=== PATIENT | male | born 1965 | race Caucasian/White ===

== ENCOUNTER 2023-11-06 17:49 | Emergency (ER) | payer BC, SELFPAY ==
[2023-11-06 18:02] VITALS: BP 141/90
--- NOTE | 2023-11-06 18:17 | ED.GENMED ---
History of Present Illness
General
Chief Complaint: Eye Problems
Time Seen by Provider: 11/06/23 18:15
History of Present Illness
History of Present Illness:
HPI: Patient presents with concerns of the left eye. Yesterday he was seen by his primary care doctor who placed him on clindamycin and an eye medication. He then went to see an cardiac rn who switched him to neomycin/polymyxin/dexamethasone.
He was encouraged to go to the ER if his symptoms worsened. He chronically has poor vision to the left eye.
EXAM:
GENERAL: Well appearing in no distress
HEENT: There is moderate to severe left-sided periorbital edema with overlying erythema, the patient was unable to read any of the lines for visual acuity with the left eye but states this is chronic
CARDIOVASCULAR: No murmurs, normal heart rate, regular rhythm, No chest wall tenderness
PULMONARY: No respiratory distress, breath sounds are clear and equal
ABDOMEN: Soft with no peritoneal signs, no tenderness
NEUROLOGIC: Excellent strength all extremities, no coordination deficits
PSYCHIATRIC: Appropriate mental status, normal insight and judgement
EXTREMITIES: Nontender, no edema, moves all extremities equally
SKIN: As above
TIME OF INITIAL ENCOUNTER: 6:30 PM
NUMBER AND COMPLEXITY OF PROBLEMS ADDRESSED AT THE ENCOUNTER
� Chronic conditions affecting care: [employer] shunt for hydrocephalus, COPD, PHILLIP, high blood pressure
� Acute Exacerbation and/or Progression of Chronic Illness: This is an acute problem
� Differential Diagnosis includes: Periorbital cellulitis, orbital cellulitis, facial cellulitis, abscess
AMOUNT AND/OR COMPLEXITY OF DATA TO BE REVIEWED AND ANALYZED
� I performed an independent evaluation of and my interpretation is:
EKG:
CT: CT imaging personally reviewed. No evidence for orbital cellulitis but there is suggestion of mild preorbital cellulitis
X-rays:
Laboratory Studies: White blood cell count is normal chemistries unremarkable
Other:
� Review of other/old records: I reviewed records. The patient was admitted here in March 2023 with COVID-pneumonia and was also placed on empiric antibiotics. He was given Decadron at that time and also has history of COPD.
� Clinical information was obtained by an independent historian: None needed
� Prescriptions/Medications Considered but not given:
� Further testing considered but not performed:
RISK OF COMPLICATIONS AND/OR MORBIDITY OR MORTALITY OF PATIENT MANAGEMENT
� Social determinants of health affecting care: Lives at home
� Discussion with other providers:
� Escalation of care including admission/observation vs risk of discharge considered: The patient states that his vision to the left eye is poor but this is unchanged from prior. He is at his baseline from a vision standpoint.
I did give a dose of IV antibiotics here and CT imaging of the orbits obtained. CT imaging shows no evidence of orbital cellulitis. His white count is normal and he is afebrile. He has been on antibiotics for less than 24 hours�encouraged to
continue antibiotics. To return here if worse.
Past History
Past History
ED Past Medical History: COPD, HTN and Other (Migraine headaches, BPH. Kidney stones, hydrocephalus right, PNA, Hiatal hernia)
ED Past Surgical History: Cholecystectomy and Other ([employer] shunt , Hemorrhoidectomy, Hernia repair, )
Social History
Tobacco: Former smoker
Alcohol: None
Drug: None
Personal:
Living: with family
Employment: Employed
Family History
Family History: Other (Noncontributory )
Phy Exam
Physical Exam
Physical Exam:
See HPI
Course
Orders/Labs/Results
Orders:
Orders
11/06/23 18:28
CT Orbits With Iv Contrast Urgent
Comment:
Reason For Exam: worsening L periorbital cell; eval for orbital abhilash
11/06/23 18:49
Basic Metabolic Panel Urgent
Complete Blood Count/With Diff Urgent
11/06/23 18:57
Clindamycin 600 mg/50 ml [Cleocin] 600 mg in 50 ml IV NOW
Abnormal Lab Results
11/06/23
18:49
Chloride 108 H mmol/L
(98-107)
Glucose 125 H mg/dl
(70-99)
11/06/23 18:49
11/06/23 18:49
Vital Signs
Initial and Last Documented VS:
Initial Vital Signs
Temp Pulse Resp BP Pulse Ox
98.1 F 57 16 141/90 99
11/06/23 18:02 11/06/23 18:02 11/06/23 18:02 11/06/23 18:02 11/06/23 18:02
Last Documented Vital Signs
Temp Pulse Resp BP Pulse Ox
98.1 F 57 20 132/82 95
11/06/23 18:02 11/06/23 19:56 11/06/23 19:56 11/06/23 19:56 11/06/23 19:56
*Critical Care Note
Total Time (30-74mins, 75-104mins- exclusive of procedures): Not Applicable
ED Attending Note
-
Portions of this chart may have been created with voice recognition software.� Occasional wrong word or��sound alike� substitutions may have occurred due to the inherent limitations of voice recognition software.
Discharge Plan
Departure
Patient Disposition: Home (Routine Discharge)
Date of Disposition: 11/06/23
Time of Disposition: 20:10
Patient with high blood pressure during this ER visit?: Yes
Discharge Problem:
Periorbital cellulitis of left eye
Prescriptions:
No Action
propranolol 60 mg Tablet
60 mg PO BID
lorazepam 0.5 mg Tablet
0.5 mg PO HS
Patient Comments:
03/12/2023: last filled 02/03/23, 70 tabs for 27 days from [id number]
escitalopram oxalate 10 mg Tablet
10 mg PO DAILY Qty: 1 0RF
amlodipine 5 mg tablet
5 mg PO DAILY
lorazepam 0.5 mg tablet
0.5 mg PO BID PRN (Reason: anxiety)
Patient Comments:
03/12/2023: last filled 02/03/23, 70 tabs for 27 days from [id number]
tamsulosin 0.4 mg capsule
0.4 mg PO QPM
albuterol sulfate 90 mcg/actuation HFA aerosol inhaler
2 puff INHALATION R QID PRN (Reason: sob/wheezing)
dutasteride 0.5 mg capsule
0.5 mg PO QPM
omeprazole magnesium [Prilosec OTC] 20 mg Tablet,Delayed Release (Dr/Ec)
20 mg PO DAILY
fluticasone furoate-vilanterol [Breo Ellipta] 100-25 mcg/dose blister with device
1 inh INHALATION R DAILY
doxycycline hyclate 100 mg Capsule
100 mg PO Q12 Qty: 7 0RF
benzonatate 100 mg Capsule
200 mg PO TID Qty: 30 0RF
amoxicillin-pot clavulanate 875-125 mg tablet
1 tab PO BID Qty: 7 0RF
dexamethasone 6 mg tablet
6 mg PO DAILY Qty: 5 0RF
Referrals:
Adolfo Castellanos MD [Family Provider] -
Activity Restrictions/Additional Instructions:
Continue your previously prescribed medication. Your white blood cell count is normal. Your temperature was normal. Your orbital CT shows no sign of orbital cellulitis meaning no sign of deep infection�we do see signs of preseptal
cellulitis/periorbital cellulitis. Return here if worse.
Discharge Date and Time
Print Language: UGANDAN
[2023-11-06 18:55] VITALS: BMI 30.5
[2023-11-06 18:58] LABS: % Basophils 0.5 % (0-2); % Eosinophils 3.9 % (0-6); % Immature Granulocytes 0.3 % (0-0.5); % Monocytes 6.7 % (1.7-9.3); % Neutrophils 62.6 % (42.2-75.2); Absolute Eosinophils 0.3 10^3/uL (0-0.7); Absolute Monocytes 0.5 10^3/uL (0.1-0.6); Absolute Neutrophils 4.7 10^3/uL (1.4-6.5); Hematocrit 42.6 % (39.0-52.0); Hemoglobin 14.7 g/dL (13.0-18.0); Mean Corp Hgb Conc. 34.5 g/dL (33.0-37.0); Mean Corpuscular Hgb 27.8 pg (27.0-31.0); Mean Corpuscular Volume 80.7 fL (80.0-94.0); Mean Platelet Volume 9.3 fL (7.4-10.4); Nucleated Red Blood Cells % 0 % (-); Platelet Count 201 10^3/uL (130-400); Red Blood Cell Count 5.28 10^6/uL (4.70-6.10); Red Cell Dist. Width 13.2 % (11.5-14.5); White Blood Cell Count 7.5 10^3/uL (4.8-10.8)
[2023-11-06 19:17] LABS: Blood Urea Nitrogen 16 mg/dl (9-20); Carbon Dioxide 25 mmol/L (22-30); Chloride 108 mmol/L (98-107); Estimated Creatinine Clearance 74 ml/min; Glucose 125 mg/dl (70-99); Sodium 139 mmol/L (135-145); eGFR > 60.00
[2023-11-06] MEDS: CLEOCIN 50 IV (19:43)
[2023-11-06 19:56] VITALS: BP 132/82
== END 2023-11-06 20:47 | disposition home or self-care (01) ==
LOC: EMR 17:49
PROVIDERS: EMERGENCY PHYSICIAN Emergency Medicine; FAMILY PHYSICIAN Family Medicine
DX: L03.213 Periorbital cellulitis (principal); H53.8 Other visual disturbances; I10 Essential (primary) hypertension; J44.9 Chronic obstructive pulmonary disease, unspecified; G43.909 Migraine, unspecified, not intractable, without status migrainosus; N40.0 Benign prostatic hyperplasia without lower urinary tract symptoms; G47.33 Obstructive sleep apnea (adult) (pediatric); Z98.2 Presence of cerebrospinal fluid drainage device; Z87.01 Personal history of pneumonia (recurrent); Z87.891 Personal history of nicotine dependence; Z87.442 Personal history of urinary calculi; Z90.49 Acquired absence of other specified parts of digestive tract; Z88.5 Allergy status to narcotic agent; Z88.8 Allergy status to other drugs, medicaments and biological substances
CPT/HCPCS: 99284; 96365; 70481; 80048; 85025; Q9967

== ENCOUNTER → 2023-11-19 06:33 | Outpatient (REF) | payer BC, SELFPAY ==
[2023-11-19 07:38] LABS: ALT (SGPT) 18 U/L (0-50); AST (SGOT) 22 U/L (17-59); Albumin 4.1 g/dl (3.5-5.0); Alkaline Phosphatase 89 U/L (38-126); Blood Urea Nitrogen 18 mg/dl (9-20); Calcium 9.2 mg/dl (8.4-10.2); Carbon Dioxide 26 mmol/L (22-30); Chloride 106 mmol/L (98-107); Glucose 122 mg/dl (70-99); HDL Cholesterol 56 mg/dl; LDL Cholesterol, Calculated 132 mg/dl; Potassium 4.2 mmol/L (3.5-5.1); Sodium 140 mmol/L (135-145); Total Bilirubin 0.9 mg/dl (0.2-1.3); Total Cholesterol 204 mg/dl (50-199); Total Protein 6.7 g/dl (6.3-8.2); Triglyceride 82 mg/dl (10-149); Very Low Density Lipoprotein 16 mg/dl (0-30); eGFR > 60.00
[2023-11-19 07:53] LABS: Hematocrit 44.5 % (39.0-52.0); Hemoglobin 15.1 g/dL (13.0-18.0); Mean Corp Hgb Conc. 33.9 g/dL (33.0-37.0); Mean Corpuscular Hgb 28.4 pg (27.0-31.0); Mean Corpuscular Volume 83.6 fL (80.0-94.0); Platelet Count 212 10^3/uL (130-400); Red Blood Cell Count 5.32 10^6/uL (4.70-6.10); Red Cell Dist. Width 12.9 % (11.5-14.5); White Blood Cell Count 7.7 10^3/uL (4.8-10.8)
[2023-11-19 08:04] LABS: PSA, Total - Screen 0.77 ng/ml (0.0-4.0); TSH 2.08 uIU/ml (0.47-4.68)
== END ==
LOC: REG 06:33
PROVIDERS: ATTENDING PHYSICIAN Family Medicine; FAMILY PHYSICIAN Family Medicine
DX: E78.2 Mixed hyperlipidemia (principal); Z00.01 Encounter for general adult medical examination with abnormal findings; R53.83 Other fatigue; I10 Essential (primary) hypertension
CPT/HCPCS: 36415; 80053; 80061; 84443; 85027; G0103

== ENCOUNTER → 2024-02-19 07:30 | Outpatient (REF) | payer BC, SELFPAY ==
[2024-02-20 14:02] LABS: Glycohemoglobin (HgbA1c) 5.9 % (4.0-5.6)
== END ==
LOC: REG 07:30
PROVIDERS: ATTENDING PHYSICIAN Family Medicine
DX: R73.09 Other abnormal glucose (principal)
CPT/HCPCS: 36415; 83036

== ENCOUNTER → 2024-03-13 14:50 | Outpatient (REF) | payer BC, SELFPAY | LOC: RAD 14:50 | PROVIDERS: ATTENDING PHYSICIAN Family Medicine | DX: J44.1 Chronic obstructive pulmonary disease with (acute) exacerbation (principal) | CPT/HCPCS: 71046 ==

== ENCOUNTER 2024-07-15 07:06 | Emergency (ER) | payer BC, SELFPAY ==
[2024-07-15 07:16] VITALS: BP 133/88
[2024-07-15 07:23] VITALS: BMI 31.5
--- NOTE | 2024-07-15 07:36 | ED.GENMED ---
History of Present Illness
General
Chief Complaint: Breathing Problem
Source: patient
Exam Limitations: none
Time Seen by Provider: 07/15/24 07:29
History of Present Illness
History of Present Illness:
59-year-old male with history of COPD presents complaining of onset of shortness of breath worse today which started yesterday. He tried using his rescue inhaler without relief. He denies chest pain. No fevers. He has a history of pneumonia. He
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 No other complaints at this time
Past History
Past History
ED Past Medical History: COPD, HTN and Other (Migraine headaches, BPH. Kidney stones, hydrocephalus right, PNA, Hiatal hernia)
ED Past Surgical History: Cholecystectomy and Other ([employer] shunt , Hemorrhoidectomy, Hernia repair, )
Social History
Tobacco: Former smoker
Alcohol: None
Drug: None
Personal:
Living: with family
Employment: Employed
Family History
Family History: Other (Noncontributory )
Phy Exam
Physical Exam
Physical Exam:
General: Well-appearing male with increased work of breathing
HEENT: Normocephalic atraumatic
Heart: Regular rate and rhythm
Lungs: expiratory wheeze noted
Extremities: No cyanosis or edema
Skin: Warm no rash
Scores
Heart Failure Risk
Heart Failure Risk Score: Not Applicable
Course
Orders/Labs/Results
Orders:
Orders
07/15/24 07:08
Electrocardiogram (*1) Urgent
Reason for Study: Shortness of Breath
EKG- Treatment ONCE
07/15/24 07:23
Ipratropium/Albuterol Sulfate [Duoneb] 3 ml .ROUTE .STK-MED ONE
07/15/24 07:35
Dexamethasone Sod Phosphate [Decadron] 10 mg IV NOW STA
CR Chest - 2 Views Urgent
Comment:
Reason For Exam: sob
07/15/24 07:37
Complete Blood Count/With Diff Urgent
Comprehensive Metabolic Panel Urgent
NT-proBNP Urgent
07/15/24 07:47
Ipratropium/Albuterol Sulfate [Duoneb] 3 ml INH R NOW ONE
Abnormal Lab Results
07/15/24
07:37
Lymphocytes % 20.2 L %
(20.5-51.1)
Chloride 109 H mmol/L
(98-107)
Glucose 139 H mg/dl
(70-99)
07/15/24 07:37
07/15/24 07:37
Vital Signs
Initial and Last Documented VS:
Initial Vital Signs
Temp Pulse Resp BP Pulse Ox
98.3 F 63 16 133/88 98
07/15/24 07:16 07/15/24 07:16 07/15/24 07:16 07/15/24 07:16 07/15/24 07:16
Last Documented Vital Signs
Temp Pulse Resp BP Pulse Ox
98.3 F 55 11 133/88 99
07/15/24 07:16 07/15/24 07:28 07/15/24 07:28 07/15/24 07:16 07/15/24 07:33
MDM/Problems Addressed
Differential Diagnosis Includes:
Patient with shortness of breath. Wheezing on exam. Differential could include acute bronchitis versus aspiration of COPD versus pneumonia versus CHF
EKG through triage shows sinus rhythm with a rate of 60 no ischemic changes
DuoNeb ordered. Chest x-ray BNP and other labs pending
*Critical Care Note
Total Time (30-74mins, 75-104mins- exclusive of procedures): Not Applicable
Update Note
Update Note:
Chest x-ray clear. Patient feeling better after nebulizer. Suspect COPD flare but not hypoxic no further respiratory distress. No indication for admission. He will continue his inhaler at home. Will add steroids for 5 days. Stable for discharge
ED Attending Note
-
Portions of this chart may have been created with voice recognition software.� Occasional wrong word or��sound alike� substitutions may have occurred due to the inherent limitations of voice recognition software.
Discharge Plan
Departure
Patient Disposition: Home (Routine Discharge)
Date of Disposition: 07/15/24
Time of Disposition: 09:07
Patient with high blood pressure during this ER visit?: No
Discharge Problem:
COPD (chronic obstructive pulmonary disease)
Instructions: Exacerbation of COPD (DC)
Prescriptions:
New
prednisone 20 mg tablet
40 mg PO DAILY 5 Days Qty: 10 0RF
No Action
propranolol 60 mg Tablet
60 mg PO BID
lorazepam 0.5 mg Tablet
0.5 mg PO HS
Patient Comments:
03/12/2023: last filled 02/03/23, 70 tabs for 27 days from [id number]
escitalopram oxalate 10 mg Tablet
10 mg PO DAILY Qty: 1 0RF
amlodipine 5 mg tablet
5 mg PO DAILY
lorazepam 0.5 mg tablet
0.5 mg PO BID PRN (Reason: anxiety)
Patient Comments:
03/12/2023: last filled 02/03/23, 70 tabs for 27 days from [id number]
tamsulosin 0.4 mg capsule
0.4 mg PO QPM
albuterol sulfate 90 mcg/actuation HFA aerosol inhaler
2 puff INHALATION R QID PRN (Reason: sob/wheezing)
dutasteride 0.5 mg capsule
0.5 mg PO QPM
omeprazole magnesium [Prilosec OTC] 20 mg Tablet,Delayed Release (Dr/Ec)
20 mg PO DAILY
fluticasone furoate-vilanterol [Breo Ellipta] 100-25 mcg/dose blister with device
1 inh INHALATION R DAILY
doxycycline hyclate 100 mg Capsule
100 mg PO Q12 Qty: 7 0RF
benzonatate 100 mg Capsule
200 mg PO TID Qty: 30 0RF
amoxicillin-pot clavulanate 875-125 mg tablet
1 tab PO BID Qty: 7 0RF
dexamethasone 6 mg tablet
6 mg PO DAILY Qty: 5 0RF
Referrals:
Adolfo Castellanos MD [Family Provider] -
Activity Restrictions/Additional Instructions:
Continue with your inhaler at home. Use steroid as directed. Return if worse otherwise follow-up with your doctor
Interventions
Interventions:
*Risk Screen - Suicide Last Done: 07/15/24 07:16
*General Assessment Last Done: 07/15/24 07:49
*ED COVID-19 Vaccine History Last Done: 07/15/24 07:49
ED- Cardiac Assessment Last Done: 07/15/24 07:33
ED- Pulmonary Assessment Last Done: 07/15/24 07:33
Discharge Date and Time
Print Language: PORTUGUESE
[2024-07-15] MEDS: DECADRON 10 MG IV (07:47)
[2024-07-15] MEDS: DUONEB 3 ML INH (07:47)
[2024-07-15 08:19] LABS: ALT (SGPT) 16 U/L (0-50); AST (SGOT) 18 U/L (17-59); Albumin 4.3 g/dl (3.5-5.0); Alkaline Phosphatase 94 U/L (38-126); Blood Urea Nitrogen 15 mg/dl (9-20); Calcium 9.1 mg/dl (8.4-10.2); Carbon Dioxide 23 mmol/L (22-30); Chloride 109 mmol/L (98-107); Estimated Creatinine Clearance 82 ml/min; Glucose 139 mg/dl (70-99); Sodium 143 mmol/L (135-145); Total Protein 6.9 g/dl (6.3-8.2); eGFR > 60.00
[2024-07-15 08:25] LABS: NT-proBNP 62.8 pg/ml
[2024-07-15 08:33] LABS: % Basophils 0.4 % (0-2); % Eosinophils 2.3 % (0-6); % Immature Granulocytes 0.4 % (0-0.5); % Lymphocytes 20.2 % (20.5-51.1); % Monocytes 4.8 % (1.7-9.3); % Neutrophils 71.9 % (42.2-75.2); Absolute Eosinophils 0.2 10^3/uL (0-0.7); Absolute Lymphocytes 1.6 10^3/uL (1.2-3.4); Absolute Monocytes 0.4 10^3/uL (0.1-0.6); Absolute Neutrophils 5.6 10^3/uL (1.4-6.5); Hematocrit 45.8 % (39.0-52.0); Hemoglobin 15.6 g/dL (13.0-18.0); Mean Corp Hgb Conc. 34.1 g/dL (33.0-37.0); Mean Corpuscular Hgb 28.3 pg (27.0-31.0); Mean Corpuscular Volume 83.1 fL (80.0-94.0); Mean Platelet Volume 9.6 fL (7.4-10.4); Nucleated Red Blood Cells % 0 % (-); Platelet Count 205 10^3/uL (130-400); Red Blood Cell Count 5.51 10^6/uL (4.70-6.10); Red Cell Dist. Width 12.5 % (11.5-14.5); White Blood Cell Count 7.7 10^3/uL (4.8-10.8)
[2024-07-15 09:21] VITALS: BP 139/88
== END 2024-07-15 09:22 | disposition home or self-care (01) ==
LOC: EMR 07:06
PROVIDERS: Physician Assistant; EMERGENCY PHYSICIAN Emergency Medicine; FAMILY PHYSICIAN Family Medicine
DX: J44.9 Chronic obstructive pulmonary disease, unspecified (principal); I10 Essential (primary) hypertension; Z87.891 Personal history of nicotine dependence; Z90.49 Acquired absence of other specified parts of digestive tract; Z98.2 Presence of cerebrospinal fluid drainage device
CPT/HCPCS: 96374; 94640; 99285; 71046; 80053; 83880; 85025; 93005

== ENCOUNTER → 2024-08-14 10:36 | Outpatient (REF) | payer BC, SELFPAY | LOC: CLAB 10:36 | PROVIDERS: ATTENDING PHYSICIAN Otolaryngology | DX: R22.9 Localized swelling, mass and lump, unspecified (principal) | CPT/HCPCS: 87070; 87075; 87077; 87147; 87186; 87205 ==

== ENCOUNTER → 2024-08-17 10:31 | Outpatient (REF) | payer BC, SELFPAY | LOC: RAD 10:31 | PROVIDERS: ATTENDING PHYSICIAN Physician Assistant; FAMILY PHYSICIAN Family Medicine | DX: Z98.2 Presence of cerebrospinal fluid drainage device (principal) | CPT/HCPCS: 70450 ==

== ENCOUNTER → 2024-08-18 15:01 | Outpatient (REF) | payer BC, SELFPAY | LOC: RAD 15:01 | PROVIDERS: ATTENDING PHYSICIAN Physician Assistant; FAMILY PHYSICIAN Family Medicine | DX: Z98.2 Presence of cerebrospinal fluid drainage device (principal) | CPT/HCPCS: 70250; 71046; 74019 ==